=== PATIENT | male | born 1995 | race Caucasian/White ===

== ENCOUNTER 2017-09-23 01:42 | Emergency (ER) | payer OTHER ==
[~2017-09-23] VITALS: Ht 175.3 cm; Wt 84.7 kg
[2017-09-23 01:46] VITALS: TEMP 36.8; Ht 175.3 cm; Wt 84.7 kg
[2017-09-23 02:17] LABS: BASO % 0.3 %; BASO ABS # 0.03 K/uL (0-0.2); EOS % 1.7 %; EOS ABS # 0.15 K/uL (0-0.5); HEMATOCRIT 47.8 % (42-52); IG# 0.02 K/uL (0.00-0.02); LYMPH % 34.9 %; LYMPH ABS # 3.16 K/uL (1.2-3.4); MEAN CELL VOLUME 85.4 fL (80-100); MEAN CORPUSCULAR HEMOGLOBIN 30.4 pg (25-34); MEAN CORPUSCULAR HGB CONC 35.6 g/dl (32-36); MONO % 9.6 %; MONO ABS # 0.87 K/uL (0.11-0.59); NEUT % 53.3 %; NEUT ABS # 4.83 K/uL (1.4-6.5); PLATELET COUNT 161 K/uL (130-400); RED CELL DISTRIBUTION WIDTH CV 12.7 % (11.5-14.5); RED CELL DISTRIBUTION WIDTH SD 39.4 fL (36.4-46.3); WHITE BLOOD COUNT 9.06 K/uL (4.8-10.8)
[2017-09-23 02:34] LABS: CALCIUM 8.8 mg/dl (8.5-10.1); CREATININE 1.3 mg/dl (0.60-1.40); POTASSIUM 3.4 mmol/L (3.5-5.1)
[2017-09-23] MEDS ORDERED: POTASSIUM CHLORIDE 10 MEQ TABCR PO STA (02:43)
[2017-09-23] MEDS ORDERED: MULT-506 PO (02:45)
[2017-09-23] MEDS ORDERED: CEFTRIAXONE SOD 350MG/ML 1 GM VIAL IM STA (03:46)
--- NOTE | 2017-09-23 03:46 | EMERGENCY ROOM VISIT NOTE ---
History First contact with patient: 01:50 Chief Complaint: TESTICULAR PAIN Stated Complaint: TESTICULAR PAIN Nursing Triage Summary: pt reports left testicular pain starting last night. Pt reports minor swelling but denies redness. History of Present Illness The patient is a 21 year old male who presents to the Emergency Room with complaints of left testicular pain that radiates to his groin for the past day described as discomfort, 5 out of 10. Nothing makes it better or worse. He states there is a possibility for STI's. No known currently. Patient denies penile discharge, penile pain, dysuria, hematuria, urinary frequency urgency, scrotal discoloration, nausea, vomiting, diarrhea, abdominal pain, flank pain, back pain or any other medical complaints. No problems with his testicles in the past. Review of Systems An 10 system review of systems was completed with positives and pertinent negatives listed in the HPI. Past Medical/Surgical History none Social History Smoking Status: Never Smoker Smokeless Tobacco Use: No Alcohol Use: occasionally Drug Use: none Occupation Status: [employer] student Current/Historical Medications Scheduled Multivitamin (Multivitamin), 1 TAB PO DAILY Physical Exam Vital Signs Date Time Temp Pulse Resp B/P (MAP) Pulse Ox O2 Delivery O2 Flow Rate FiO2 09/23/17 01:46 36.8 115 16 136/84 99 Room Air Physical Exam VITALS: Vitals are noted on the nurse's note and reviewed by myself. Vital signs stable. GENERAL: Pleasant male, in no acute distress, nondiaphoretic, well-developed well-nourished. SKIN: Capillary reflex less than 2 seconds. HEENT: Normocephalic. PERRLA. EOMI. Nares patent. Mucous membranes moist. Neck is supple without nuchal rigidity. HEART: Regular rate and rhythm without murmurs gallops or rubs. LUNGS: Clear to auscultation bilaterally without wheezes, rales or rhonchi. No retractions or accessory muscle use. ABDOMEN: Positive bowel sounds x 4. Normal tympanic percussion. Soft, nontender, without masses or organomegaly. Coulter sign negative. No guarding or rebound tenderness. No CVA tenderness exam: Left testicle epididymis tender to palpation, cremasteric reflex intact bilaterally, no erythema or discoloration to the scrotum, no rashes or discharge from the penis, swab taken and sent. Chairperson Anesthesiology present MUSCULOSKELETAL: No gross musculoskeletal defects. No pedal edema. No calf tenderness. NEURO: Patient was alert and oriented to person place and time. Normal sensation to light and sharp touch. No focal neurological deficits. Medical Decision & Procedures Laboratory Results 09/23/17 02:00 Red Blood Count 5.60, Mean Corpuscular Volume 85.4, Mean Corpuscular Hemoglobin 30.4, Mean Corpuscular Hemoglobin Concent 35.6, Mean Platelet Volume 12.0, Neutrophils (%) (Auto) 53.3, Lymphocytes (%) (Auto) 34.9, Monocytes (%) (Auto) 9.6, Eosinophils (%) (Auto) 1.7, Basophils (%) (Auto) 0.3, Neutrophils # (Auto) 4.83, Lymphocytes # (Auto) 3.16, Monocytes # (Auto) 0.87, Eosinophils # (Auto) 0.15, Basophils # (Auto) 0.03 09/23/17 02:00 Test 09/23/17 01:55 09/23/17 02:00 White Blood Count 9.06 K/uL (4.8-10.8) Red Blood Count 5.60 M/uL (4.7-6.1) Hemoglobin 17.0 g/dL (14.0-18.0) Hematocrit 47.8 % (42-52) Mean Corpuscular Volume 85.4 fL (80-100) Mean Corpuscular Hemoglobin 30.4 pg (25-34) Mean Corpuscular Hemoglobin Concent 35.6 g/dl (32-36) Platelet Count 161 K/uL (130-400) Mean Platelet Volume 12.0 fL (7.4-10.4) Neutrophils (%) (Auto) 53.3 % Lymphocytes (%) (Auto) 34.9 % Monocytes (%) (Auto) 9.6 % Eosinophils (%) (Auto) 1.7 % Basophils (%) (Auto) 0.3 % Neutrophils # (Auto) 4.83 K/uL (1.4-6.5) Lymphocytes # (Auto) 3.16 K/uL (1.2-3.4) Monocytes # (Auto) 0.87 K/uL (0.11-0.59) Eosinophils # (Auto) 0.15 K/uL (0-0.5) Basophils # (Auto) 0.03 K/uL (0-0.2) RDW Standard Deviation 39.4 fL (36.4-46.3) RDW Coefficient of Variation 12.7 % (11.5-14.5) Immature Granulocyte % (Auto) 0.2 % Immature Granulocyte # (Auto) 0.02 K/uL (0.00-0.02) Urine Color YELLOW Urine Appearance CLEAR (CLEAR) Urine pH 5.5 (4.5-7.5) Urine Specific [place] 1.017 (1.000-1.030) Urine Protein NEG (NEG) Urine Glucose (UA) NEG (NEG) Urine Ketones NEG (NEG) Urine Occult Blood NEG (NEG) Urine Nitrite NEG (NEG) Urine Bilirubin NEG (NEG) Urine Urobilinogen NEG (NEG) Urine Leukocyte Esterase NEG (NEG) Anion Gap 10.0 mmol/L (3-11) Est Creatinine Clear Calc Drug Dose 89.9 ml/min Estimated GFR () 90.4 Estimated GFR (Non- 78.0 BUN/Creatinine Ratio 13.0 (10-20) Calcium Level 8.8 mg/dl (8.5-10.1) Medications Administered Medications (Trade) Dose Ordered Sig/Reina Route Start Time Stop Time Status Last Admin Dose Admin Potassium Chloride (Klor-Con M10) 10 meq NOW STAT PO 09/23/17 02:43 09/23/17 02:44 DC 09/23/17 02:59 10 MEQ ED Course Prior records/ancillary studies reviewed. Triage Nursing notes reviewed. The patient's history was concerning for testicular swelling. Differential diagnosis: Etiologies such as torsion, mass, infection, hernia, hydrocele, epididymitis, trauma, intra-abdominal process, as well as others were entertained. Physical examination: Patient is alert, interactive well-appearing ER treatment provided: Rocephin, doxycycline, scrotal support On reassessment the patient felt better. Diagnostic interpretation by me: The labs revealed a worsening leukocytosis. Hypokalemia this is replaced orally. Negative urine. GC chlamydia taken and sent Imaging studies: Ultrasound concerning for epididymitis per radiology This appears to be consistent with epididymitis. Patient was started on antibiotics for possible STI. He is advised to abstain from intercourse to he reviews the results. He was informed he can call the ER in 3-4 days for the results. He was advised to take medications as directed and wear scrotal support. He is advised to follow-up urology in a few days if symptoms persist or here in the ER sooner for severe pain, fevers, vomiting, worsens her symptoms or as needed. Patient had no signs of torsion on exam on ultrasound. He is well-appearing. He had no leukocytosis. He was afebrile and nontoxic. He had no discoloration to his testicle. By the evaluation outlined above emergent etiologies such as torsion, mass, hernia, hydrocele, trauma, intra- abdominal process, as well as others were deemed relatively unlikely. The pt informed about the findings as listed above. All questions were answered and pleased with the treatment. Return instructions were outlined and the patient was discharged in stable condition. Outpatient prescription management: Doxycycline Referral: The patient was referred to urology for follow-up in 2-3 days for a recheck of the current condition Case reviewed with my attending The chart was completed utilizing [employer] Speech voice recognition software. Grammatical errors, random word insertions, pronoun errors, and incomplete sentences are an occassional consequence of this system due to software limitations, ambient noise, and hardware issues. Any formal questions or concerns about the content, text, or information contained within the body of this dictation should be directly addressed to the physician title i assistant for clarification. Medical Decision As above Medication Reconcilliation Current Medication List: was personally reviewed by me Blood Pressure Screening Patient's blood pressure: Normal blood pressure Impression Primary Impression: Epididymitis, left Additional Impression: Hypokalemia Departure Information Dispostion Home / Self-Care Condition GOOD Referrals No Doctor, Assigned (PCP) Patient Instructions My [facility] Additional Instructions Doxycycline 100mg: Take one pill twice daily for 10 days for your infection. Take with food, but avoid dairy. Avoid prolonged sun exposure since this medication makes you temporarily more susceptible to sunburns. All antibiotics can cause diarrhea. If this occurs and you feel worse or it does not resolve in 1-2 days follow up with your doctor or return to the Emergency Department as this could be signs of serious underlying problems. Any medication can cause an allergic reaction, stop the pills immediately and return to the ER for rash, hives, breathing difficulties, or swelling. Ibuprofen(Motrin, Advil) may be used for fever or pain. Use 600mg every six hours as needed. Take with food. Avoid using more than 2400mg in a 24 hour period. Do not use 2400mg per day for more than three consecutive days without physician direction. Prolonged inappropriate use can lead to stomach upset or ulcers. (AND/OR) Acetaminophen(Tylenol) may be used for fever or pain. Use 1000mg every six hours as needed. Avoid using more than 3000mg in a 24 hour period. Recommend no intercourse until your review your STI results. This will be back in 3-5 days. Call for the results. If this is positive, I recommend that you notify your partners to get checked. Wear scrotal support for comfort. Rest and drink plenty of fluids as tolerated. Continue current medications. Avoid strenuous activities and anything that worsens your pain. Resume normal activities once your symptoms resolve. Return to the ER immediately for worsening or persistent testicular pain, abdominal pain, vomiting, fevers, chest pains, difficulty breathing, worsening of your condition, or as needed. Follow up with urology in 2-3 days for a recheck of your current condition. Problem Qualifiers
[2017-09-23] MEDS ORDERED: DOXY100C2 PO (03:47)
[2017-09-23] MEDS ORDERED: DOXYCYCLINE HYCLATE 100 MG CAP PO ONE (04:00)
[2017-09-23 04:54] VITALS: BP 115/69; PULSE 104; O2SAT 99
--- NOTE | 2017-09-23 06:54 | DIAGNOSTIC IMAGING REPORT ---
(TESTICULAR) SCROTUM-CONT CLINICAL HISTORY: 21 years-old Male with left test pain, ? epid. Acute left-sided testicular pain COMPARISON STUDY: None available TECHNIQUE: Real-time, grayscale, and color Doppler sonography of the testes and scrotum is performed. Images are reviewed in the transverse and longitudinal planes. FINDINGS: RIGHT HEMISCROTUM: The right testis measures 3.9 x 2.2 x 2.4 cm and the parenchyma appears unremarkable. No intratesticular mass is seen. Normal-appearing arterial inflow is present within the right testicle. The right epididymal head appears normal. No varicocele or hydrocele is identified. LEFT HEMISCROTUM: The left testis measures 3.9 x 2.0 x 2.6 cm and the parenchyma appears unremarkable. No intratesticular mass is seen. Normal-appearing arterial inflow is present within the left testicle. The left epididymal tail is mildly prominent in size however does not demonstrate increased vascularity, nonspecific finding. No varicocele or hydrocele is identified. IMPRESSION: 1. Unremarkable sonographic appearance of the bilateral testicles. 2. Nonspecific mildly increased size of the left epididymal tail without increased vascularity identified to suggest acute epididymitis. 3. No hydrocele or varicocele. The above report was generated using voice recognition software. It may contain grammatical, syntax or spelling errors. Electronically signed by: Jose De Jesus Ware M.D. 09/23/2017 6:52 AM Dictated Date/Time: 09/23/2017 6:50 AM
== END 2017-09-23 04:56 | disposition home or self-care (01) ==
LOC: C.EDB 01:44
DX: N45.1 Epididymitis (principal); E87.6 Hypokalemia

== ENCOUNTER 2017-10-14 13:07 | Emergency (ER) | payer OTHER ==
[~2017-10-14] VITALS: Ht 175.3 cm; Wt 83.5 kg
[~2017-10-14 13:07] MED LIST: DOXY100C2 PO; MULT-506 PO
[2017-10-14 13:13] VITALS: BP 145/76; PULSE 90; TEMP 36.8; O2SAT 97; Ht 175.3 cm; Wt 83.5 kg
[2017-10-14] MEDS ORDERED: CIPR-255 PO (13:30)
--- NOTE | 2017-10-14 20:03 | EMERGENCY ROOM VISIT NOTE ---
History First contact with patient: 13:17 Chief Complaint: TESTICULAR PAIN Stated Complaint: FOLLOW UP/ REACURRING SYMPTOMS OF EPIDIDYMITIS Nursing Triage Summary: left testicular pain. here recently for same symptoms. stopped taking antibiotics 1.5 wks ago History of Present Illness The patient is a 21 year old male who presents to the Emergency Room with complaints of recurrent left testicular pain. The patient reports that he was here approximately 1.5 weeks ago with similar symptoms, and was diagnosed with epididymitis. He received an antibiotic shot and provided a prescription for an unknown medication. The patient did complete all of his antibiotics. The patient reports that on his initial visit, he did have mild left testicular swelling. He currently denies any swelling. He also denies any urinary symptoms or hematuria. He denies any pain radiating into the abdomen or rectal region. The patient denies any prior history of inguinal hernias. He denies any recent genital trauma. He currently rates his discomfort a 2 out of 10. Patient denies any sexual activity since his last ER visit, and reports that his STI cultures were negative. Review of Systems 10 system review was performed and was negative except for pertinent positives and negatives as indicated in history of present illness Past Medical/Surgical History Medical Problems: (1) Epididymitis Surgical Problems: (1) History of oral surgery Family History No significant family history Social History Smoking Status: Never Smoker Alcohol Use: occasionally Drug Use: none Marital Status: single Occupation Status: [employer] student Current/Historical Medications Scheduled Ciprofloxacin Hcl (Cipro), 500 MG PO BID Physical Exam Vital Signs Date Time Temp Pulse Resp B/P (MAP) Pulse Ox O2 Delivery O2 Flow Rate FiO2 18 13:13 36.8 90 18 145/76 97 Room Air Physical Exam CONSTITUTIONAL: Healthy and well nourished. Alert and oriented X 3 with positive affect. Patient does not appear in any acute distress. HEENT: Normocephalic, atraumatic. Pupils equal, round and reactive. NECK: Full active range of motion without discomfort. RESPIRATORY: Clear to auscultation bilaterally with no wheezing, crackles, rhonchi or stridor. CARDIOVASCULAR: Regular rate and rhythm with no murmurs, rubs or gallops. GASTROINTESTINAL: Bowel sounds present in all quadrants. Abdomen is soft and nontender to palpation. GENITOURINARY: Normal male phallus. MUSCULOSKELETAL: Full range of motion of all joints without discomfort. INTEGUMENTARY: No rash or other significant dermatologic conditions noted. NEUROLOGIC: Cranial nerves II-XII grossly intact. No focal neurologic deficits noted. Medical Decision & Procedures ER Provider Diagnostic Interpretation: Testicular ultrasound was repeated to show no evidence for epididymitis. Radiologist report is as follows: (TESTICULAR) SCROTUM-CONT CLINICAL HISTORY: 21 years-old Male with left test pain, ? epid. Acute left-sided testicular pain COMPARISON STUDY: None available TECHNIQUE: Real-time, grayscale, and color Doppler sonography of the testes and scrotum is performed. Images are reviewed in the transverse and longitudinal planes. FINDINGS: RIGHT HEMISCROTUM: The right testis measures 3.9 x 2.2 x 2.4 cm and the parenchyma appears unremarkable. No intratesticular mass is seen. Normal-appearing arterial inflow is present within the right testicle. The right epididymal head appears normal. No varicocele or hydrocele is identified. LEFT HEMISCROTUM: The left testis measures 3.9 x 2.0 x 2.6 cm and the parenchyma appears unremarkable. No intratesticular mass is seen. Normal-appearing arterial inflow is present within the left testicle. The left epididymal tail is mildly prominent in size however does not demonstrate increased vascularity, nonspecific finding. No varicocele or hydrocele is identified. IMPRESSION: 1. Unremarkable sonographic appearance of the bilateral testicles. 2. Nonspecific mildly increased size of the left epididymal tail without increased vascularity identified to suggest acute epididymitis. 3. No hydrocele or varicocele. ED Course Patient history and physical exam were performed. Nurse's notes were reviewed. Vital signs were reviewed and were normal. I elected to treat the patient with ciprofloxacin 500 mg twice daily 14 days. The patient was provided contact information for , urologist for further follow-up. The patient was encouraged to intermittently apply ice and wear an athletic support. Ibuprofen or Tylenol as needed for additional pain relief. He was instructed to return for any significantly worsening swelling, pain, inability to urinate or developing fever. The patient was happy with plan of care, voiced understanding of all discharge instructions, and refused any analgesics while in the emergency department. Medical Decision [place] Drug Monitoring Program Search Results: patient reviewed within database, no issues identified Medication Reconcilliation Current Medication List: was personally reviewed by mi Blood Pressure Screening Patient's blood pressure: Normal blood pressure Impression Primary Impression: Left testicular pain Departure Information Dispostion Home / Self-Care Prescriptions Ciprofloxacin Hcl (CIPRO) 500 Mg Tab 500 MG PO BID for 14 Days, #28 TAB Prov: Pramod Deras PA 10/14/17 Referrals Rigo Madrid MD Forms HOME CARE DOCUMENTATION FORM, IMPORTANT VISIT INFORMATION Patient Instructions My [facility] Additional Instructions Complete all ciprofloxacin antibiotics as prescribed. Suggest follow-up with urology (Dr. Madrid) if symptoms recur or do not improve. Return to emergency department for any other concerning symptoms such as abdominal pain, difficulty with urination, fever, nausea.
== END 2017-10-14 13:47 | disposition home or self-care (01) ==
LOC: C.EDB 13:12 → C.EDD 13:47
DX: N50.89 Other specified disorders of the male genital organs (principal)

== ENCOUNTER 2017-10-19 17:55 | Emergency (ER) | payer OTHER ==
[~2017-10-19] VITALS: Ht 177.8 cm; Wt 83.0 kg
[~2017-10-19 17:55] MED LIST changes: +CIPR-255 PO; -DOXY100C2 PO; -MULT-506 PO
[2017-10-19 18:02] VITALS: TEMP 36.8; Ht 177.8 cm; Wt 83.0 kg
[2017-10-19] MEDS ORDERED: CEFTRIAXONE SOD 350MG/ML 1 GM VIAL IM STA (18:31)
[2017-10-19] MEDS ORDERED: DOXYCYCLINE HYCLATE 100 MG CAP PO ONE (18:45)
[2017-10-19] MEDS ORDERED: DOXY100T17 PEG (19:05)
--- NOTE | 2017-10-19 19:05 | EMERGENCY ROOM VISIT NOTE ---
History Report prepared by Darin: Alesia Manzo Under the Supervision of: Dr. Geoffrey Aguilar D.O. First contact with patient: 18:20 Chief Complaint: TESTICULAR PAIN Stated Complaint: EPIDIDYMITIS Nursing Triage Summary: patient states he was here 1 week ago c/o epididymitis. patient was given antibiotics but states symptoms have not resolved. patient c/o occasional burning after urination and pain to left testicle History of Present Illness The patient is a 21 year old male who presents to the Emergency Room with complaints of persistent epididymitis that began about one week ago. He reports that he was seen in the Emergency Department 5 days ago, noting that he was experiencing pain on the tip of his penis, which was resolved after taking the medication prescribed. The patient notes that his STI tests came back negative. He states that his pain began after he participated in anal intercourse, noting he repeated this activity after his symptoms were resolved which he believes caused his symptoms to begin again. He denies any current discharge or redness, but notes that he has been experiencing burning with urination and testicular pain. He notes that the intensity of his discomfort varies per day. Source of History: patient Onset: about one week ago Position: other () Symptom Intensity: varies per day Quality: other (epididymitis) Timing: other (persistent) Modifying Factors (Worsening): urination Note: Patient denies any current discharge or redness. Associated symptoms include: burning with urination and testicular pain. Review of Systems See HPI for pertinent positives & negatives. A total of 10 systems reviewed and were otherwise negative. Past Medical & Surgical Medical Problems: (1) Epididymitis Surgical Problems: (1) History of oral surgery Family History No significant family history Social History Smoking Status: Never Smoker Alcohol Use: occasionally Drug Use: none Marital Status: single Occupation Status: [employer] Current/Historical Medications Scheduled Ciprofloxacin Hcl (Cipro), 500 MG PO BID Doxycycline (Monohydrate) (Doxycycline Monohydrate), 100 MG PEG BID Allergies Coded Allergies: No Known Allergies (Unverified , 10/14/17) Physical Exam Vital Signs Date Time Temp Pulse Resp B/P (MAP) Pulse Ox O2 Delivery O2 Flow Rate FiO2 10/19/17 18:02 36.8 109 18 141/84 97 Room Air Physical Exam GENERAL: Patient is awake, alert, and in no acute distress. Patient is resting comfortably and showing no signs of anxiety EYES: The conjunctivae are clear. The pupils are round and reactive. EARS, NOSE, MOUTH AND THROAT: The nose is without any evidence of any deformity. Mucous membranes are moist tongue is midline NECK: The neck is nontender and supple. RESPIRATORY: Normal respiratory effort is noted there is no evidence of wheezing rhonchi or rales CARDIOVASCULAR: Regular rate and rhythm noted there no murmurs rubs or gallops normal S1 normal S2 GASTROINTESTINAL: The abdomen is soft. Bowel sounds are present in all quadrants. Abdomen is nontender GENITOURINARY: Circumcised male genitalia noted. No rash. Testicles are descended bilaterally. Tenderness over right epididymitis. BACK: No midline tenderness or or step-off noted range of motion in flexion extension as well as rotation no signs of muscle spasm noted MUSCULOSKELETAL/EXTREMITIES: There is no evidence of gross deformity full range of motion is noted in the hips and shoulders SKIN: There is no obvious evidence of any rash. There are no petechiae, pallor or cyanosis noted. NEUROLOGIC: Patient is awake alert and oriented x3 Medical Decision & Procedures Laboratory Results Test 10/19/17 18:40 Urine Color YELLOW Urine Appearance CLEAR (CLEAR) Urine pH 7.0 (4.5-7.5) Urine Specific [place] 1.005 (1.000-1.030) Urine Protein NEG (NEG) Urine Glucose (UA) NEG (NEG) Urine Ketones NEG (NEG) Urine Occult Blood NEG (NEG) Urine Nitrite NEG (NEG) Urine Bilirubin NEG (NEG) Urine Urobilinogen NEG (NEG) Urine Leukocyte Esterase NEG (NEG) Laboratory results per my review. Medications Administered Medications (Trade) Dose Ordered Sig/Reina Route Start Time Stop Time Status Last Admin Dose Admin Ceftriaxone Sodium (Rocephin Im) 250 mg NOW STAT IM 10/19/17 18:31 10/19/17 18:32 DC 10/19/17 18:48 250 MG Doxycycline Hyclate (Vibramycin Cap) 100 mg ONE ONCE PO 10/19/17 18:45 10/19/17 18:46 DC 10/19/17 18:48 100 MG ED Course 1825: The patient was evaluated in room B12. A complete history and physical examination were performed. 1830: Ordered Rocephin Im 250mg IM. 1844: Ordered Vibramycin Cap 100mg PO. 0: I reevaluated the patient, who was resting comfortably. I discussed test findings and the treatment plan with the patient. He verbalized complete understanding and agreement. The patient was discharged home. Medical Decision Prior records/ancillary studies reviewed. Triage Nursing notes reviewed. Additional history obtained from patient's previous medical records. The patient's history was concerning for chest pain. Differential diagnosis: Etiologies such as torsion, mass, infection, hernia, hydrocele, epididymitis, trauma, intra-abdominal process, as well as others were entertained. The patient is a 21-year-old male who presented to the emergency department for an evaluation of epididymitis. The patient's been diagnosed with epididymitis before he was started on doxycycline and symptoms resolved but the patient continued to engage in sexual intercourse specifically anal intercourse and started having symptoms again. He was started on Cipro but the symptoms continue. The patient does not appear to have a physical exam consistent with a torsion. His urinalysis did not show definite signs of infection but a culture was sent. He was given Rocephin and doxycycline in the emergency department because this regimen worked for him the last time. His STD screen was negative from last time. He does have a follow-up appointment with urology and he was encouraged to keep this appointment. Otherwise he was encouraged to avoid any further sexual activity until symptoms resolve. He was also encouraged to continue all medications as prescribed and return to the emergency department immediately if symptoms change worsen or the need arises. Medication Reconcilliation Current Medication List: was personally reviewed by me Blood Pressure Screening Patient's blood pressure: Normal blood pressure Blood pressure disposition: Did not require urgent referral Impression Primary Impression: Epididymitis Scribe Attestation The scribe's documentation has been prepared under my direction and personally reviewed by me in its entirety. I confirm that the note above accurately reflects all work, treatment, procedures, and medical decision making performed by me. Departure Information Dispostion Home / Self-Care Prescriptions Doxycycline (Monohydrate) (DOXYCYCLINE MONOHYDRATE) 100 Mg Tab 100 MG PEG BID, #28 TAB Prov: Geoffrey Aguilar, DO 10/19/17 Referrals No Doctor, Assigned (PCP) Patient Instructions [facility] Additional Instructions Continue all medications as prescribed. Drink plenty clear liquids. Follow-up with the urologist that you were referred to as soon as possible. Continue using Motrin and Tylenol as directed for pain. Avoid any further sexual activity until all symptoms have resolved and you are cleared by the urologist.
[2017-10-19 19:52] VITALS: BP 118/72; PULSE 94; O2SAT 98
== END 2017-10-19 19:53 | disposition home or self-care (01) ==
LOC: C.EDB 17:58
DX: N45.1 Epididymitis (principal)

== ENCOUNTER → 2017-11-24 | Outpatient (CLI) | payer OTHER ==
[~2017-11-24] MED LIST changes: +DOXY100T17 PEG
== END | disposition home or self-care (01) ==
LOC: C.LABSPEC 17:02
PROVIDERS: ATTEND Urology
DX: N45.1 Epididymitis (principal)